=== PATIENT | female | born 1995 | race African-American/Black ===

== ENCOUNTER 2020-07-25 01:39 | Emergency (ER) | payer SELFPAY ==
--- NOTE | 2020-07-25 04:02 | ER Document Report ---
ED GI/ - General Chief Complaint: Vaginal Pain Stated Complaint: DISCHARGE/CRAMPING Time Seen by Provider: 07/25/20 03:46 Mode of Arrival: Ambulatory Information source: Patient Notes: 24-year-old female with no previous medical problems presents to the emergency room complaining of vaginal burning and cramping after having sex with her jyoti sanchez. States she did take some Tylenol with some relief. Noticed some spotting after having sex. States she just finished her menstrual cycle 2 days ago. Denies any change in sexual partners. No concerns for STDs TRAVEL OUTSIDE OF THE [place] IN LAST 30 DAYS: No - Related Data Allergies/Adverse Reactions: ibuprofen Allergy (Verified 07/25/20 01:59) Past Medical History - General Information source: Patient - Social History Smoking Status: Never Smoker Frequency of alcohol use: None Drug Abuse: None Family History: Reviewed & Not Pertinent Review of Systems - Review of Systems Constitutional: No symptoms reported EENT: No symptoms reported Cardiovascular: No symptoms reported Respiratory: No symptoms reported Gastrointestinal: No symptoms reported Female Genitourinary: Vaginal bleeding, Painful intercourse Musculoskeletal: No symptoms reported Skin: No symptoms reported Neurological/Psychological: No symptoms reported -: Yes All other systems reviewed and negative Physical Exam - Vital signs Vitals: Temp Pulse Resp BP Pulse Ox 98.6 F 95 18 119/67 100 07/25/20 01:45 07/25/20 01:45 07/25/20 01:45 07/25/20 01:45 07/25/20 01:45 - General General appearance: Appears well, Alert In distress: Mild - Respiratory Respiratory status: No respiratory distress Chest status: Nontender Breath sounds: Normal Chest palpation: Normal - Cardiovascular Rhythm: Regular Heart sounds: Normal auscultation Murmur: No - Abdominal Inspection: Normal Distension: No distension Bowel sounds: Normal Tenderness: Nontender Organomegaly: No organomegaly - Genitourinary External exam: Normal Speculum exam: Cervix closed, Vaginal discharge - There is white vaginal discharge noted with mild bleeding. Vaginal bleeding: Mild Bimanuel exam: Normal. No: Cervical motion tender, Bladder/Urethral tender, Adnexal mass, Adnexal tenderness, Uterus enlarged - Back Back: Normal, Nontender. No: CVA tenderness - Neurological Neuro grossly intact: Yes Cognition: Normal Orientation: AAOx4 [place] Coma Scale Eye Opening: Spontaneous [place] Coma Scale Verbal: Oriented [place] Coma Scale Motor: Obeys Commands Za[place] Coma Scale Total: 15 Speech: Normal Motor strength normal: LUE, RUE, LLE, RLE Sensory: Normal - Skin Skin Temperature: Warm Skin Moisture: Dry Skin Color: Normal Course - Re-evaluation Re-evalutation: 07/25/20 05:34 Reviewed lab and ultrasound results with patient. Aware that she will be notified if her gonorrhea and/or chlamydia test are positive. Counseled to take Flagyl as prescribed. Counseled on no drinking alcohol while taking Flagyl over 24 hours after completing treatment. Counseled on importance of following up patient with a [facility]. On-call physician was provided.. Continue with Tylenol as needed for pain. Patient was given strict return to the emergency room guidelines. Return for any new or worsening symptoms. All questions were answered. Patient verbalized understanding and agrees with plan of care. 07/25/20 05:35 07/25/20 05:37 - Vital Signs Vital signs: Temp Pulse Resp BP Pulse Ox 98.6 F 95 18 119/67 100 07/25/20 01:45 07/25/20 01:45 07/25/20 01:45 07/25/20 01:45 07/25/20 01:45 - Laboratory Laboratory results interpreted by me: 07/25/20 04:15 Urine Protein 30 H Urine Urobilinogen 2.0 H Ur Leukocyte Esterase SMALL H - Diagnostic Test Radiology reviewed: Reports reviewed Discharge - Discharge Clinical Impression: Bacterial vaginosis, Dysfunctional uterine bleeding, Pelvic pain Condition: Stable Disposition: HOME, SELF-CARE Instructions: Vaginosis, Bacterial ([facility]), Pelvic Pain ([facility]), Dysfunctional Uterine Bleeding ([facility]) Additional Instructions: Continue with Tylenol as needed for pain. Flagyl as prescribed. No drinking alcohol while taking Flagyl for 24 hours after completing. Outpatient follow-up with [facility] as discussed. Return to the emergency room for any new or worsening symptoms. Prescriptions: Metronidazole [Flagyl 500 mg Tablet] 500 mg PO BID #14 tablet
[2020-07-25 04:37] LABS: BACTERIA (WET MOUNT) 4+ BACTERIA SEEN; RBCS (WET MOUNT) 4+ RBCS SEEN; T.VAGINALIS (WET MOUNT) NO TRICHOMONAS SEEN; WBCS (WET MOUNT) FEW WBCS SEEN; YEAST (WET MOUNT) NO YEAST SEEN
--- NOTE | 2020-07-25 04:54 | RADIOLOGY REPORT (SQ) ---
Ultrasound pelvis transvaginal on 07/25/2020 4:24 AM CLINICAL INDICATION: Pelvic pain COMPARISON: None FINDINGS: Multiple sonographic images are obtained throughout the pelvis by transvaginal approach, both transverse and sagittal images are obtained. The uterus measures approximately 8.8 x 4.2 x 5.0 cm. Endometrial stripe measures 2 mm which is within normal limits. Uterine myometrium appears homogeneous. The right ovary measures approximately 2.6 x 3.0 x 1.9 cm. Flow is demonstrated within the right ovary. The left ovary measures approximately 3.4 x 2.0 x 1.7 cm. Flow is demonstrated within the left ovary. No adnexal mass or fluid collection is noted. No free fluid is noted. IMPRESSION: Unremarkable exam.
[2020-07-25 05:01] LABS: APPEARANCE,URINE SLIGHTLY-CLOUDY; BILIRUBIN,URINE NEGATIVE (NEGATIVE); COLOR,URINE YELLOW; GLUCOSE, URINE NEGATIVE (NEGATIVE); KETONES,URINE NEGATIVE (NEGATIVE); LEUKOCYTE ESTERASE,URINE SMALL (NEGATIVE); NITRITE,URINE NEGATIVE (NEGATIVE); PROTEIN,URINE 30 mg/dL (NEGATIVE); URINE SPECIFIC GRAVITY 1.038
[2020-07-25 06:01] VITALS: BP 115/69
[2020-07-25 06:09] LABS: CHLAM PCR NOT DETECTED (NOT DETECT)
== END 2020-07-25 06:00 | disposition home or self-care (01) ==
LOC: ER 01:39
DX: N76.0 Acute vaginitis (principal); B96.89 Other specified bacterial agents as the cause of diseases classified elsewhere; N93.8 Other specified abnormal uterine and vaginal bleeding; N94.10 Unspecified dyspareunia; Z88.8 Allergy status to other drugs, medicaments and biological substances
CPT/HCPCS: 76830; 81001; 81025; 87210; 87491; 87591; 93976; 99282